=== PATIENT | female | born 1960 | race Caucasian/White ===

== ENCOUNTER 2018-01-26 08:18 | Day surgery (SDC) | payer BC ==
[~2018-01-26 08:18] MED LIST: CRESTOR5 M1 PO; GLIPIZIDE ER5 M1 PO; GLIPIZIDE ER5 MG PO; GLUCOPHAGE1000 MG PO; LISINOPRIL10 MG PO; MEDROL4 M1 PO; METFORMIN1000 MG PO; METFORMIN500 MG PO; METROGEL VAG0.75 % VA; MOBIC7.5 MG PO
[2018-01-26 10:40] VITALS: BP 125/61
== END 2018-01-26 10:45 | disposition home or self-care (01) | DRG 392 ==
LOC: ENDO 08:18
PROVIDERS: ATTEND Internal Medicine Gastroenterology
PROC: 0DBE8ZX Excision of Large Intestine, Via Natural or Artificial Opening Endoscopic, Diagnostic (ICD-10-PCS; principal; 2018-01-26)
DX: R19.7 Diarrhea, unspecified (principal); R14.0 Abdominal distension (gaseous); K64.4 Residual hemorrhoidal skin tags; E11.9 Type 2 diabetes mellitus without complications

== ENCOUNTER 2018-06-08 18:12 | Emergency (ER) | payer BC ==
[~2018-06-08] VITALS: Ht 152.4 cm; Wt 100.0 kg
[2018-06-08] MEDS ORDERED: TRULICITY0.75 MG/0. SC (19:02)
[2018-06-08] MEDS ORDERED: METFORMIN500 M2 PO (19:02)
[2018-06-08] MEDS ORDERED: PERCOGESI1 PO (19:55)
[2018-06-08 20:10] VITALS: BP 118/65
== END 2018-06-08 20:10 | disposition home or self-care (01) | DRG 563 ==
LOC: ED 18:12
DX: S96.912A Strain of unspecified muscle and tendon at ankle and foot level, left foot, initial encounter (principal); E11.9 Type 2 diabetes mellitus without complications; X58.XXXA Exposure to other specified factors, initial encounter